=== PATIENT | male | born 1940 | race Hispanic/Latino ===

== ENCOUNTER → 2020-05-07 | Outpatient (CLI) | payer OTHER ==
[~2020-05-07] MED LIST: CALC-322 PO; ERGO400C PO; FISH1CAP27 PO; METF-444 PO; MULT-40 PO; SIMV-43 PO; TRAM50TA4 PO; losartan PO
== END | disposition home or self-care (01) ==
LOC: RAH 11:33
PROVIDERS: ATTEND Internal Medicine
DX: R22.31 Localized swelling, mass and lump, right upper limb (principal)
CPT/HCPCS: 76882

== ENCOUNTER → 2020-08-01 | Outpatient (CLI) | payer OTHER | END | disposition home or self-care (01) | LOC: RAH 10:11 | PROVIDERS: ATTEND Internal Medicine | DX: R22.31 Localized swelling, mass and lump, right upper limb (principal) | CPT/HCPCS: 76882 ==

== ENCOUNTER → 2020-10-01 | Outpatient (CLI) | payer OTHER ==
[~2020-10-01] MED LIST changes: +GADOTERATE MEGLUMINE 10 MMOL/20 ML VIAL IV ONE
== END | disposition home or self-care (01) ==
LOC: RAH 10:38
PROVIDERS: ATTEND Internal Medicine
DX: S46.211A Strain of muscle, fascia and tendon of other parts of biceps, right arm, initial encounter (principal); X58.XXXA Exposure to other specified factors, initial encounter; Y93.89 Activity, other specified; Y92.89 Other specified places as the place of occurrence of the external cause; Y99.8 Other external cause status
CPT/HCPCS: 73220; A9575

== ENCOUNTER 2022-05-15 09:17 | Emergency (ER) | payer OTHER ==
[~2022-05-15] VITALS: Ht 154.9 cm; Wt 63.5 kg
[~2022-05-15 09:17] MED LIST changes: -GADOTERATE MEGLUMINE 10 MMOL/20 ML VIAL IV ONE
[2022-05-15 13:07] VITALS: BP 145/57
[2022-05-15 13:13] LABS: APPEARANCE,URINE CLEAR (CLEAR); BILIRUBIN,URINE NEGATIVE (NEGATIVE); COLOR,URINE LIGHT-YELLOW (YELLOW); GLUCOSE, URINE (UA) NEGATIVE (NEGATIVE); KETONES,URINE NEGATIVE (NEGATIVE); LEUKOCYTE ESTERASE ,URINE NEGATIVE Leu/uL (NEGATIVE); NITRATE,URINE NEGATIVE (NEGATIVE); OCCULT BLOOD,URINE NEGATIVE (NEGATIVE); PROTEIN,URINE NEGATIVE (NEGATIVE); UROBILINOGEN,URINE 0.2 mg/dL (0.2-1.0)
== END 2022-05-15 13:15 | disposition home or self-care (01) ==
LOC: EDH 09:17
DX: F07.81 Postconcussional syndrome (principal); I10 Essential (primary) hypertension; Z79.84 Long term (current) use of oral hypoglycemic drugs; Z79.899 Other long term (current) drug therapy
CPT/HCPCS: 70450; 81003

== ENCOUNTER 2023-12-30 10:24 | Day surgery (SDC) | payer OTHER ==
[2023-12-30] VITALS (11 sets, daily range): BP systolic 106–137; BP diastolic 48–63; PULSE 50–59; RESP 16–17
[~2023-12-30] VITALS: Ht 152.4 cm; Wt 60.8 kg
[2023-12-30] MEDS ORDERED: 0.9%NACL 1000ML 1,000 ML IV ONE (10:49)
[2023-12-30] MEDS ORDERED: ASPI-1005 PO (11:16)
[2023-12-30] MEDS ORDERED: ATOR10 PO (11:16)
[2023-12-30] MEDS ORDERED: GABA-534 PO (11:16)
[2023-12-30] MEDS ORDERED: [UNRECOGNIZED DRUG - CODE] PO (11:16)
[2023-12-30] MEDS ORDERED: TAMS-1 PO (11:16)
[2023-12-30] MEDS ORDERED: SERT50TA PO (11:16)
[2023-12-30] MEDS ORDERED: CYAN-106 PO (11:16)
[2023-12-30] MEDS ORDERED: LOSA50TA64 PO (11:16)
[2023-12-30] MEDS ORDERED: HYDR12.54 PO (11:16)
[2023-12-30] MEDS ORDERED: PROPOFOL 10 MG/ML 20ML VIAL IV ONE (11:51)
== END 2023-12-30 14:14 | disposition home or self-care (01) ==
LOC: ENDO 10:24 → DAH 10:24 → ENDO 14:14
PROVIDERS: ATTEND Internal Medicine
DX: R93.3 Abnormal findings on diagnostic imaging of other parts of digestive tract (principal); K80.20 Calculus of gallbladder without cholecystitis without obstruction; K86.89 Other specified diseases of pancreas; I10 Essential (primary) hypertension; K57.32 Diverticulitis of large intestine without perforation or abscess without bleeding; Z79.899 Other long term (current) drug therapy
CPT/HCPCS: 43237; 82948; J7030; J2704; A4620; A4215 ×2; A4223; A4222; A4221; A4663; A4606; J3490

== ENCOUNTER → 2024-05-25 | Outpatient (CLI) | payer OTHER ==
[~2024-05-25] MED LIST changes: +ASPI-1005 PO; +ATOR10 PO; -CALC-322 PO; +CYAN-106 PO; -ERGO400C PO; -FISH1CAP27 PO; +GABA-534 PO; +HYDR12.54 PO; +IOHEXOL 350 MG/ML 100ML INFUS..BTL IV ONE; +LOSA50TA64 PO; -METF-444 PO; -MULT-40 PO; +SERT50TA PO; -SIMV-43 PO; +TAMS-1 PO; -TRAM50TA4 PO; +[UNRECOGNIZED DRUG - CODE] PO; -losartan PO
== END | disposition home or self-care (01) ==
LOC: RAH 10:26
PROVIDERS: ATTEND Internal Medicine Gastroenterology
DX: K55.1 Chronic vascular disorders of intestine (principal); R93.3 Abnormal findings on diagnostic imaging of other parts of digestive tract
CPT/HCPCS: 74170; Q9967; 74175

== ENCOUNTER 2024-06-13 06:33 | Day surgery (SDC) | payer OTHER ==
[2024-06-13] VITALS (14 sets, daily range): BP systolic 120–162; BP diastolic 58–68; PULSE 59–72; RESP 15–18; TEMP 97.3–97.4
[~2024-06-13] VITALS: Ht 154.9 cm; Wt 63.0 kg
[~2024-06-13 06:33] MED LIST changes: -IOHEXOL 350 MG/ML 100ML INFUS..BTL IV ONE
[2024-06-13] MEDS: 0.9%NACL 1000ML 1,000 ML IV ONE (07:24)
[2024-06-13] MEDS ORDERED: CREON PO (07:26)
[2024-06-13] MEDS ORDERED: proPOFol 10 MG/ML 20ML VIAL IV ONE (09:22)
== END 2024-06-13 11:00 | disposition home or self-care (01) ==
LOC: DAH 06:33 → ENDO 06:33
PROVIDERS: ATTEND Internal Medicine Gastroenterology
DX: R93.3 Abnormal findings on diagnostic imaging of other parts of digestive tract (principal); K64.0 First degree hemorrhoids; K59.04 Chronic idiopathic constipation; K57.30 Diverticulosis of large intestine without perforation or abscess without bleeding; K80.20 Calculus of gallbladder without cholecystitis without obstruction; R93.2 Abnormal findings on diagnostic imaging of liver and biliary tract; K86.89 Other specified diseases of pancreas; I10 Essential (primary) hypertension; E66.9 Obesity, unspecified; Z86.2 Personal history of diseases of the blood and blood-forming organs and certain disorders involving the immune mechanism; Z68.27 Body mass index [BMI] 27.0-27.9, adult; Z87.19 Personal history of other diseases of the digestive system; Z98.890 Other specified postprocedural states; Z80.8 Family history of malignant neoplasm of other organs or systems; Z79.899 Other long term (current) drug therapy
CPT/HCPCS: 43237; J7030; J2704; A4620; A4215; J3490

== ENCOUNTER → 2024-08-14 | Outpatient (CLI) | payer OTHER ==
[~2024-08-14] MED LIST changes: -ASPI-1005 PO; +CREON PO; -CYAN-106 PO; +GADOTERATE MEGLUMINE 10 MMOL/20 ML VIAL IV ONE; -[UNRECOGNIZED DRUG - CODE] PO
--- NOTE | 2024-08-14 10:26 | HMCIMG ---
Exam Type: MRI OF THE ABDOMEN WITH AND WITHOUT CONTRAST and MR cholangiopancreatography Comparison Study: none History: R93.3 Abnormal findings on diagnostic imaging of other parts of digestive t PROTOCOL: Examination is done with multiecho multiplanar sequences before and after gadolinium administration. ASSET with multiplanar 3-D reconstructions MR cholangiopancreatography sequences are also available for review. MRCP performed customary fashion. 2D axial FIESTA fat-saturated images of abdomen, coronal thick slab MRCP ASSET scan and coronal thin slab MRCP ASSET 3 mm images and maximum intensity projection postprocessing, MIP projected in the customary circumferential and head over heels fashion. Contrast: MultiHance, 15 cc, IV FINDINGS: No evidence of nephro or ureterolithiasis is found. No hydronephrosis or ureteral dilatation is seen. The stomach is unremarkable. There is no evidence of gastric dilatation. No blastic thickening is noted to suggest inflammation or tumor. There is no perforation. There is no gastric outlet obstruction. There is no ulceration. The spleen is unremarkable. It is not enlarged. The pancreas shows normal anatomy. It is not fatty replaced. It shows no lesions. The pancreatic duct is not dilated. The gallbladder is unremarkable. It shows no cholelithiasis. The gallbladder wall is normal in thickness. There is no pericholecystic fluid. The is no acute or chronic inflammation noted. The adrenal glands are unremarkable. There is no enlargement. No lesions are noted. The liver is unremarkable. It shows no focal masses. The visualized segments of large and small bowel appear unremarkable. The bony and vascular structures are unremarkable for the patient's age. MRCP is likewise unremarkable. The common bile duct is well as the intrahepatic bile ducts are well seen without filling defects to suggest calculi. There are no areas of dilatation or abrupt cutoffs. IMPRESSION: NORMAL MRI OF THE ABDOMEN. Normal MRCP.
== END | disposition home or self-care (01) ==
LOC: RAH 07:57
PROVIDERS: ATTEND Internal Medicine
DX: K76.89 Other specified diseases of liver (principal); R93.3 Abnormal findings on diagnostic imaging of other parts of digestive tract
CPT/HCPCS: 74183; A9575

== ENCOUNTER 2024-09-21 06:34 | Day surgery (SDC) | payer OTHER ==
[2024-09-21] VITALS (10 sets, daily range): BP systolic 122–145; BP diastolic 53–66; PULSE 51–60; RESP 15–18; TEMP 97.3–98.1
[~2024-09-21] VITALS: Ht 152.4 cm; Wt 59.0 kg
[~2024-09-21 06:34] MED LIST changes: -GADOTERATE MEGLUMINE 10 MMOL/20 ML VIAL IV ONE; -TAMS-1 PO; +TAMS-55 PO
[2024-09-21] MEDS ORDERED: OMEP40CA21 PO (08:33)
[2024-09-21] MEDS: 0.9%NACL 1000ML 1,000 ML IV ONE (08:43)
[2024-09-21] MEDS ORDERED: proPOFol 10 MG/ML 20ML VIAL IV ONE (10:49)
--- NOTE | 2024-09-21 12:05 | NUR ---
Full and complete discharge instructions given to Patient and Family both verbally and in writing. Explained GI procedure precautions and follow up. All questions answered. Informed him of pending labs and CT to be set up at office. PIV removed with catheter tip intact. Home with Family W/C to POV.
== END 2024-09-21 12:12 | disposition home or self-care (01) ==
LOC: ENDO 06:34 → DAH 06:34 → ENDO 12:12
PROVIDERS: ATTEND Internal Medicine Gastroenterology
DX: R93.3 Abnormal findings on diagnostic imaging of other parts of digestive tract (principal); K86.89 Other specified diseases of pancreas; K57.30 Diverticulosis of large intestine without perforation or abscess without bleeding; K64.0 First degree hemorrhoids; I10 Essential (primary) hypertension; K59.04 Chronic idiopathic constipation; Z86.2 Personal history of diseases of the blood and blood-forming organs and certain disorders involving the immune mechanism; Z79.899 Other long term (current) drug therapy; Z98.890 Other specified postprocedural states
CPT/HCPCS: 43259; J7030; J2704; A4215; A4223; A4222; A4221; A4663; A4606; J3490

== ENCOUNTER → 2024-10-12 | Outpatient (CLI) | payer OTHER ==
[~2024-10-12] MED LIST changes: -CREON PO; -GABA-534 PO; -HYDR12.54 PO; +IOHEXOL-350 75 ML VIAL IV ONE; +OMEP40CA21 PO
--- NOTE | 2024-10-12 10:19 | HMCIMG ---
CT ABDOMEN WITH CONTRAST Clinical Information: Abnormal findings on diagnostic imaging of other parts of digestive tract Comparison: CT Dose Index (CTDI): mGy Dose Length Product (DLP): total mGy-cm Contrast: 100 cc's Isovue 370 IV, no complications or adverse reactions Technique: Routine helical scanning at 5mm collimation through the abdomen was performed after oral contrast administration. The examination was done before and after IV contrast administration as well. Intermediate and 7 minute delayed post IV contrast administration images were performed, for adequate contrast distention of the urinary collecting systems, ureters and the urinary bladder. Findings: No evidence of nephro or ureterolithiasis is found. No hydronephrosis or ureteral dilatation is seen. The lung bases are clear. The stomach is unremarkable. There is no evidence of gastric dilatation. No blastic thickening is noted to suggest inflammation or tumor. There is no perforation. There is no gastric outlet obstruction. There is no ulceration. The spleen is unremarkable. It is not enlarged. The pancreas shows atrophy with ex vacuo prominence of the pancreatic duct. The gallbladder is hydropic but otherwise unremarkable. The adrenal glands are unremarkable. There is no enlargement. No lesions are noted. The liver is unremarkable. It shows no focal masses. The visualized segments of large and small bowel appear unremarkable. Postoperative changes of the lower lumbar spine seen. IMPRESSION: Chronic changes as noted above. NO RENAL STONES. NO ACUTE PATHOLOGY OR INFLAMMATION SEEN. This study was performed using dose reduction techniques to include automated exposure control and/or adjustment of the mA and/or kV according to patient size.
== END | disposition home or self-care (01) ==
LOC: RAH 08:18
PROVIDERS: ATTEND Internal Medicine Gastroenterology
DX: K86.89 Other specified diseases of pancreas (principal); R93.3 Abnormal findings on diagnostic imaging of other parts of digestive tract; R10.10 Upper abdominal pain, unspecified; R97.8 Other abnormal tumor markers; Z98.890 Other specified postprocedural states
CPT/HCPCS: 74170; Q9967